=== PATIENT | male | born 1995 | race Caucasian/White ===

== ENCOUNTER 2021-02-10 12:43 | Emergency (ER) | payer OTHER, SELFPAY ==
[2021-02-10 13:01] VITALS: BP 169/95; PULSE 85; RESP 16; TEMP 36.5; O2SAT 97; BMI 28.8
[2021-02-10 13:06] VITALS: BP 169/96; PULSE 71; RESP 16; O2SAT 97
--- NOTE | 2021-02-10 13:36 | W.ED.WOUNDLC ---
HPI - Wound/Laceration General: Chief Complaint: Wound/Laceration Stated Complaint: W/C - DRIVING FENCE POST, MISSED POST CUT R WRIST Time Seen by Provider: 02/10/21 13:06 History of Present Illness: HPI narrative: Patient comes in for injury to the palmar right hand. Patient prior to arrival was driving post and lacerated the palm of his right hand. Patient has normal movement range of motion. Patient reports tetanus is up-to-date. Onset (ago): minute(s) Place: work Context: accidental Review of Systems General: Reports: 10 or more systems reviewed and unremarkable except in HPI and below Skin/Breast: Reports: other (Laceration right hand) Physical Exam Const: COMMON NORMALS: no acute distress and patient oriented x3 GENERAL APPEARANCE: cooperative HENMT: COMMON NORMALS: normocephalic and Normal external nose present HEAD & SCALP: normal to inspection and normocephalic NOSE: Normal external nose present MOUTH: Normal oral and palatal mucosa present Eye: GENERAL EYE: appearance normal, both eyes and all related structures Neck/C-Spine: COMMON NORMALS: full ROM Chest: COMMONS NORMALS: normal inspection of the chest Resp: COMMON NORMALS: normal respiratory effort EFFORT & INSPECTION: Yes able to speak in complete sentences Cardio: COMMON NORMALS: regular rate and regular rhythm RATE: regular rate RHYTHM: regular rhythm GI: COMMON NORMALS: non-tender Extremity: COMMON NORMALS: normal to inspection NARRATIVE EXTREMITY EXAM: 3 cm laceration to the palmar right hand. Normal range of motion, normal sensation, distal cap refill intact. Neuro: COMMON NORMALS: patient oriented x3 and moves all extremities Psych: COMMON NORMALS: mental status grossly normal and cooperative Skin: COMMON NORMALS: no rashes or lesions noted GENERAL SKIN EXAM: no rashes or lesions noted Procedures Laceration Laceration 1: Site: upper extremity Side (If applicable): right Size (cm): 3 Description: irregular Depth: simple, single layer Local Anesthetic: lidocaine 1% and with epi Amount of anesthesia used (mL): 4 Pre-repair: wound explored and irrigated extensively Skin layer closed with: nylon Size (cm): 3-0 Number of sutures: 6 Technique: simple, interrupted Course Vital Signs: Vital signs: Vital Signs Temperature 97.7 F 02/10/21 13:01 Pulse Rate 71 02/10/21 13:06 Respiratory Rate 16 02/10/21 13:06 Blood Pressure 169/96 02/10/21 13:06 Pulse Oximetry 97 02/10/21 13:06 MDM - Wound/Laceration MDM Narrative: Medical decision making narrative: Patient comes in today with injury to the right hand. On exam we note a 3 cm laceration to the palmar right hand. Exam notes no deficits in range of motion or changes in sensation or lack of cap refill. Differential diagnosis includes foreign body, laceration, neurovascular compromise. No signs of neurovascular compromise or foreign body was noted. No signs of fracture in the wound was noted. Wound was repaired with sutures patient tolerated well. Reviewed post procedure care and instructions with patient. Patient reported understanding of care plan and need for follow-up or return. Patient was placed on cephalexin 500 twice a day for 10 days for prophylaxis antibiotic. Discharge Plan Discharge Patient Disposition: Home Clinical Impression: Laceration Condition: Stable Prescriptions: New cephalexin 500 mg capsule 500 mg PO BID 10 Days Qty: 20 RF: 0 Discharge Orders: Discharge ED (Routine); Ordered 02/10/21 Ordered By: Bryan Zhu Discharge Diet: Usual diet Discharge Activity: Increase activity as tolerated Patient Instructions: Suture Care (ED), Opioid Safety Activity Restrictions/Additional Instructions: Keep wound clean and dry. Activity as tolerated. Change dressing daily. Use soap and water to clean the wound dry thoroughly and apply a nonstick dressing. Sutures need to come out in 7 to 10 days. Take antibiotic as needed for prophylaxis. Follow-up with primary care as needed. Return to the ER for new concerns. Coding Level of Care Code ED Supervisor [employer] for Gale James
== END 2021-02-10 13:49 | disposition home or self-care (01) ==
PROVIDERS: Emergency Provider Nurse Practitioner Family
DX: S61.411A Laceration without foreign body of right hand, initial encounter (principal); W26.8XXA Contact with other sharp object(s), not elsewhere classified, initial encounter
CPT/HCPCS: 12002; 99282